=== PATIENT | female | born 1995 | race Caucasian/White ===

== ENCOUNTER 2019-01-14 02:33 | Emergency (ER) | payer OTHER ==
[~2019-01-14] VITALS: Ht 154.9 cm; Wt 65.8 kg
[2019-01-14] MEDS ORDERED: OBSTETRIX ONE1 EACH PO (02:44)
== END 2019-01-14 12:25 | disposition home or self-care (01) ==
LOC: ER 02:33
DX: K52.9 Noninfective gastroenteritis and colitis, unspecified (principal)

== ENCOUNTER 2019-05-19 09:32 | Inpatient (IN) | payer OTHER ==
[~2019-05-19] VITALS: Ht 154.9 cm; Wt 3.2 kg
[~2019-05-19 09:32] MED LIST: OBSTETRIX ONE1 EACH PO
== END 2019-06-18 14:09 | disposition home or self-care (01) | DRG 788 ==
LOC: LDR 06-03 12:15 → OB/GYN 06-14 19:06 → LDR 06-16 12:15 → OB/GYN 06-18 14:09
PROVIDERS: ADMIT Obstetrics & Gynecology
PROC: 4A0HXFZ Measurement of Products of Conception, Cardiac Rhythm, External Approach (ICD-10-PCS; 2019-06-14)
PROC: 10D00Z1 Extraction of Products of Conception, Low, Open Approach (ICD-10-PCS; principal; 2019-06-14 18:00)
DX: O82 Encounter for cesarean delivery without indication (principal); Z37.0 Single live birth; Z3A.39 39 weeks gestation of pregnancy

== ENCOUNTER 2019-06-10 08:26 | Outpatient (CLI) | payer OTHER | END 2019-06-10 09:24 | disposition home or self-care (01) | LOC: NST 08:26 | DX: Z34.83 Encounter for supervision of other normal pregnancy, third trimester (principal) ==

== ENCOUNTER 2022-08-30 12:32 | Emergency (ER) | payer OTHER ==
[~2022-08-30] VITALS: Ht 154.9 cm; Wt 71.2 kg
[2022-08-30] MEDS ORDERED: OSEL75CA PO (15:14)
== END 2022-08-30 15:22 | disposition home or self-care (01) ==
LOC: ER 12:32
DX: O98.511 Other viral diseases complicating pregnancy, first trimester (principal); Z3A.01 Less than 8 weeks gestation of pregnancy; J10.1 Influenza due to other identified influenza virus with other respiratory manifestations; Z20.822 Contact with and (suspected) exposure to COVID-19

== ENCOUNTER 2023-04-03 10:41 | Inpatient (IN) | payer OTHER ==
[~2023-04-03] VITALS: Ht 152.4 cm; Wt 2.7 kg
[~2023-04-03 10:41] MED LIST changes: +OSEL75CA PO
[2023-04-11] MEDS ORDERED: METOCLOPRAMIDE10 MG PO (10:30)
[2023-04-11] MEDS ORDERED: KETO10TA2 PO (10:31)
[2023-04-11] MEDS ORDERED: OXYC1TAB9 PO (10:31)
== END 2023-04-11 14:17 | disposition home or self-care (01) | DRG 788 ==
LOC: OB/GYN 04-08 06:48 → O/R 04-08 06:48 → OB/GYN 04-08 10:15
PROVIDERS: ADMIT Obstetrics & Gynecology; ATTEND Obstetrics & Gynecology
PROC: 4A1HXCZ Monitoring of Products of Conception, Cardiac Rate, External Approach (ICD-10-PCS; 2023-04-08)
PROC: 10D00Z1 Extraction of Products of Conception, Low, Open Approach (ICD-10-PCS; principal; 2023-04-08 10:15)
DX: O34.211 Maternal care for low transverse scar from previous cesarean delivery (principal); Z3A.39 39 weeks gestation of pregnancy; O99.824 Streptococcus B carrier state complicating childbirth; Z37.0 Single live birth; Z20.822 Contact with and (suspected) exposure to COVID-19